=== PATIENT | male | born 1955 | race Hispanic/Latino ===

== ENCOUNTER 2018-03-03 06:18 | Day surgery (SDC) | payer OTHER ==
[2018-03-03 07:29] LABS: Basophils # (Auto) 0.1 K/mm3 (0.0-0.1); Basophils % (Auto) 1.2 % (0.0-1.8); Eosinophils # (Auto) 0.2 K/mm3 (0.0-0.4); Eosinophils % (Auto) 2.1 % (0.0-4.3); Hematocrit 39.4 % (35.5-45.6); Hemoglobin 13.4 gm/dl (11.8-15.2); Lymphocytes # (Auto) 2.4 K/mm3 (1.2-5.4); Lymphocytes % (Auto) 28.3 % (13.4-35.0); Mean Corpuscular HGB Conc 34 % (32-34); Mean Corpuscular Hemoglobin 29 pg (28-32); Mean Corpuscular Volume 85 fl (84-94); Monocytes # (Auto) 0.8 K/mm3 (0.0-0.8); Platelet Count 240 K/mm3 (140-440); Red Blood Count 4.62 M/mm3 (3.65-5.03); Red Cell Distribution Width 13.8 % (13.2-15.2)
[2018-03-03 07:40] LABS: BUN/Creatinine Ratio 18; Blood Urea Nitrogen 16 mg/dL (9-20); Calcium 9.8 mg/dL (8.4-10.2); Hemolysis Index 4; INR 0.95 (0.87-1.13)
[2018-03-03] MEDS ORDERED: NACL 0.9% 500 ML 500 ML IV SCH (08:00)
[2018-03-03] MEDS ORDERED: HEPARIN/NS 5000 UNIT/500ML(CATH LAB) 1,000 ML IR ONE (08:30)
[2018-03-03] MEDS: VERSED ONE ×2 (09:48→10:03)
[2018-03-03] MEDS: SUBLIMAZE ONE ×2 (09:48→10:03)
[2018-03-03] MEDS: XYLOCAINE 2% INFILTRATI ONE ×2 (09:48→10:06)
[2018-03-03] MEDS: CALAN ONE ×2 (09:49→10:07)
[2018-03-03] MEDS: NITROGLYCERIN SYRINGE 3 ML ONE ×2 (09:50→10:07)
[2018-03-03] MEDS: HEPARIN 10,000 UNITS/10 ML ONE ×2 (09:50→10:07)
--- NOTE | 2018-03-03 10:46 | Discharge Summary ---
Short Stay Discharge Plan Activity: advance as tolerated Weight Bearing Status: Full Weight Bearing Diet: low fat, low cholesterol, low salt, diabetic Special Instructions: no heavy lifting (3 days), hold Metformin (48hrs only) Additional Instructions: OUTPATIENT FOLLOW UP WITH CT SURGERY AT [facility] WITH ANN ABREU AND JED. Follow up with: CHON DALEY MD [Primary Care Provider] - 7 Days NAN MARIE MD [Staff Physician] - 7 Days
[2018-03-03] MEDS ORDERED: NACL 0.9% 1000 ML 1,000 ML IV SCH (11:00)
--- NOTE | 2018-03-03 11:02 | Cardiac Catherization Report ---
This a cardiac catheterization report. REASON FOR PROCEDURE: Chest pain. PROCEDURE PERFORMED: 1. Left heart catheterization. 2. Selective left and right coronary angiography. 3. Left ventricular angiography. 4. Sedation time was start was 10:02 and end time 10:17. The patient was prepped and draped in a sterile fashion after informed consent. The right radial cath site was prepped and draped after a negative Peter's test. The right radial artery was entered using the Seldinger technique followed by placement of a 6-Russian hydrophilic sheath. Routine radial cocktail was administered via the sheath. Selective left and right coronary angiography was performed using a #3.5 left Susana catheter and a #4 right Susana catheter. The pigtail catheter was used for left ventricle angiography. The catheters were removed, sheath removed, and hemostasis achieved using manual compression. The patient was returned to the postprocedure unit in stable condition. There were no complications. FINDINGS: HEMODYNAMICS: Left ventricular end-diastolic pressure was 19, following coronary angiography. Ascending aortic pressure was 150/75. There was a less than 5 mmHg gradient on pullback across the aortic valve. CORONARY ANGIOGRAPHY: There was heavy calcification of the left main coronary artery. This was associated with diffuse moderate narrowing of the left main, associated with catheter tip dumping. The left anterior descending artery contained diffuse mild atherosclerosis of its proximal segment. There was diffuse moderate disease of the mid LAD, with up to 70% focal narrowing of the mid segment. A medium-sized ramus intermedius artery contained diffuse moderate to severe atherosclerosis of its proximal segment. The circumflex was a large dominant system. This vessel contained a 70-80% stenosis of its ostium, adjacent to the distal left main. Following that, there was a long 70-75% stenosis of the mid AV groove vessel before the origin of a large mid obtuse marginal. Following that, another medium to large distal obtuse marginal contained a greater than 99% stenosis of its proximal segment. The circumflex then continued, terminating in a medium-sized posterolateral and a small to medium sized left posterior descending branch. There was another 60-70% stenosis of the AV groove circumflex leading to these two terminal branches. The right coronary artery of small caliber, nondominant, moderately diffusely diseased vessel. The left ventricle was very mildly dilated. Left ventricular systolic function was at the lower limits of normal with ejection fraction of 50-55%. CONCLUSION: 1. Multivessel coronary artery disease as outlined above, including heavy calcification and at least moderate diffuse atherosclerosis of the left main coronary artery. 2. Left circumflex dominant system. 3. Well preserved left ventricular systolic function with ejection fraction 50-55%. RECOMMENDATION: The patient will be recommended for cardiothoracic surgery consultation. I will likely benefit from multivessel coronary bypass. JOB# [id number] CA/NTS
[2018-03-03] MEDS ORDERED: ULTRAM PO PRN (12:21)
[2018-03-03 15:15] VITALS: BP 141/75
== END 2018-03-03 14:45 | disposition home or self-care (01) ==
LOC: CATHLABREC 06:18
PROVIDERS: ATTEND Internal Medicine Cardiovascular Disease
DX: I25.10 Atherosclerotic heart disease of native coronary artery without angina pectoris (principal); I10 Essential (primary) hypertension; M19.90 Unspecified osteoarthritis, unspecified site; J45.909 Unspecified asthma, uncomplicated; K21.9 Gastro-esophageal reflux disease without esophagitis; E11.9 Type 2 diabetes mellitus without complications; E78.5 Hyperlipidemia, unspecified; E66.9 Obesity, unspecified; Z68.31 Body mass index [BMI] 31.0-31.9, adult; Z87.891 Personal history of nicotine dependence; Z82.49 Family history of ischemic heart disease and other diseases of the circulatory system
CPT/HCPCS: 36415; 80048; 85025; 85610; 85730; 93005; 93010; 93458; 99156; 99157; C1894; J1644; J2250; J3010; J7030; J7040; Q9967